=== PATIENT | female | born 1950 | race Caucasian/White ===

== ENCOUNTER 2018-02-11 08:34 | Observation (INO) ==
[2018-02-11 08:59] LABS: Basophils % 0.4 % (0.0-0.8); Eosinophils # 0.1 10*3/uL (0.0-0.87); Hemoglobin 14.3 GM/DL (12.0-16.0); Immature Granulocytes % 0.1 %; Immature Granulocytes Absolute 0.01 #; Lymphocytes # 2.2 10*3/uL (1.4-4.0); Lymphocytes % 32.8 % (21.3-54.2); Mean Corpuscular HGB Conc 33.3 GM/DL (32-36); Mean Corpuscular Hemoglobin 30 PG (27-34); Mean Corpuscular Volume 90.1 FL (87-102); Mean Platelet Volume 9.8 FL (9.6-12.0); Monocytes # 0.5 10*3/uL (0.11-0.8); Monocytes % 7.8 % (1.7-12.7); Neutrophils % 57.9 % (38.7-73.9); Platelet Count 241 T/CUMM (130-400); Red Blood Count 4.77 MC/CUMM (3.8-5.5); Red Cell Distribution Width 13.1 % (9.3-17.3); White Blood Count 6.8 T/CUMM (4-12)
[2018-02-11 09:24] LABS: Albumin 4.1 G/DL (3.4-5.0); Bilirubin,Total 0.5 MG/DL (0.2-1.0); Calcium 9.2 MG/DL (8.5-10.1); Osmolality,Calculated 280.3 MOS/KG (273-304); Potassium 3.8 MMOL/L (3.5-5.1); Total Protein 7.2 G/DL (6.4-8.3)
[2018-02-11] MEDS ORDERED: ONDANSETRON 4 MG/2 ML VIAL IV PRN (10:54)
[2018-02-11] MEDS ORDERED: LACTULOSE 20 GM/30 ML UDCUP PO PRN (10:54)
[2018-02-11] MEDS ORDERED: MECLIZINE 25 MG TABLET PO PRN (10:54)
[2018-02-11] MEDS ORDERED: NICOTINE 21 MG/24 HR PATCH TRANSDERM PRN (10:54)
[2018-02-11] MEDS ORDERED: ACETAMINOPHEN 325 MG TABLET PO PRN (10:54)
[2018-02-11] MEDS ORDERED: hydrALAZINE 25 MG TABLET PO PRN (11:00)
[2018-02-11] MEDS: SODIUM CHLORIDE 0.9% 1,000 ML IV SCH (12:07)
[2018-02-11] MEDS: ASPIRIN EC 81 MG TABLET PO SCH (12:07)
[2018-02-11] MEDS: LISINOPRIL/HCTZ 20-12.5 MG TABLET PO SCH (12:09)
[2018-02-12] MEDS: ASPIRIN EC 81 MG TABLET PO SCH (09:18)
[2018-02-12] MEDS: LISINOPRIL/HCTZ 20-12.5 MG TABLET PO SCH (09:18)
[2018-02-12] MEDS: SODIUM CHLORIDE 0.9% 1,000 ML IV SCH ×2 (09:20→12:58)
[2018-02-12 13:05] VITALS: BP 144/88
== END 2018-02-12 15:28 | disposition home or self-care (01) ==
LOC: N.ED 08:34 → N.EDINP 08:34 → SUATTDRO 10:54 → N.2W 11:38 → N.5E 13:18
PROVIDERS: ADMIT Internal Medicine; ATTEND Internal Medicine